=== PATIENT | female | born 1965 | race Caucasian/White ===

== ENCOUNTER → 2021-05-28 | Outpatient (CLI) | payer OTHER ==
[~2021-05-28] MED LIST: ALEVE220 M1 PO; BIOTIN; DITROPAN 5 MG TA5 MG PO; DOCUSATE SODIU250 MG PO; ECHINACEA & GO1 EACH PO; FAMOTIDINE20 MG PO; HYDROCODONE-AC1 EACH PO; IBUPROFEN200 M1 PO; IBUPROFEN600 MG PO; IBUPROFEN800 MG PO; LUTEIN20 MG PO; TURMERIC
[2021-05-28 10:49] LABS: HEMOGLOBIN 13.6 gm/dl (12.3-15.3); RED BLOOD COUNT 4.45 M/UL (4.00-5.10); WHITE BLOOD COUNT 5.7 K/UL (4.5-11.0)
== END ==
LOC: OPSV2 10:00
PROVIDERS: Obstetrics & Gynecology
DX: Z01.812 Encounter for preprocedural laboratory examination (principal); N81.9 Female genital prolapse, unspecified
CPT/HCPCS: 36415; 81001; 85025

== ENCOUNTER → 2021-06-05 | Day surgery (SDC) | payer OTHER ==
[~2021-06-05] VITALS: Ht 167.6 cm; Wt 68.9 kg
== END | disposition home or self-care (01) ==
LOC: OR 08:35
DX: D26.1 Other benign neoplasm of corpus uteri (principal); N80.2 Endometriosis of fallopian tube; N83.202 Unspecified ovarian cyst, left side; N83.201 Unspecified ovarian cyst, right side; N72 Inflammatory disease of cervix uteri; N81.10 Cystocele, unspecified; K21.9 Gastro-esophageal reflux disease without esophagitis; Z20.822 Contact with and (suspected) exposure to COVID-19
CPT/HCPCS: C1769; J0690; J1100; J1170; J1885; J2250; J2405; J2704; J3010; J7050; J7120